=== PATIENT | male | born 1955 | race American Indian/Alaskan Native ===

== ENCOUNTER 2017-03-14 15:17 | Inpatient (IN) | payer OTHER ==
[~2017-03-14] VITALS: Ht 177.8 cm; Wt 113.6 kg
[~2017-03-14 15:17] MED LIST: ADVAIR 500-501 EACH INH; ALEVE220 M1 PO; BACTRIM 400-801 EACH PO; CARAFATE1 GM/10 ML PO; CEFTRIAXONE1 G2 IM; DOXYCYCLINE HY100 M3 PO; NEXIUM20 MG PO; NICOTINE PATCH1 EAC1 TD; PROTONIX40 MG PO; PROVENTIL HFA6.7 GM INH; ZOFRAN ODT4 MG PO
--- NOTE | 2017-03-14 21:35 | NUR ---
61YR OLD MAN ADMITTED FROM ER VIA STRETCHER TO ROOM 122 ACCOMPANIED BY GIRLFRIEND. PT IS ALERT AND ORIENTED. ABLE TO STAND AND WALK FROM STRETCHER TO BED WITH MIN ASSIST. DENIES NAUSEA, RATES RLQ PAIN 4/10. LAUGHING AND JOKING WITH STAFF. REQUESTING NICOTINE PATCH AND SOMETHING TO EAT. ORIENTED TO ROOM AND CALL LIGHT. ORDERS NOTED.
--- NOTE | 2017-03-14 22:17 | NUR ---
GIVEN JELLO AND APPLE JUICE PER CL LIQUID DIET. REQUESTED TO GET UP AND TAKE SHOWER. IV TO SL. IN SHOWER AT THIS TIME. GIRLFRIEND WILL BE STAYING THE NIGHT.
--- NOTE | 2017-03-14 22:38 | NUR ---
PT CALLED, DONE IN SHOWER. IN TO SEE PT. NICODERM PATCH APPLIED TO L SHOULDER. PT REQUEST WATER AND APPLE JUICE, REQUEST GIVEN. NO FURTHER NEEDS AT THIS TIME. AT BEDSIDE. CALL LIGHT IN PLACE.
--- NOTE | 2017-03-14 23:11 | NUR ---
PATIENT ASKED FOR 3 JELLO AND BROTH. CLEANED UP THE SHOWER.
--- NOTE | 2017-03-14 23:43 | NUR ---
PT CALLED REQUESTING MEDICATION FOR PAIN. PT RATES PAIN A 7/10 AFTER COUGHING. DILAUDID 0.4 MG GIVEN. IVF INFUSING. NO FURTHER NEEDS AT THIS TIME. AT BEDSIDE. CALL LIGHT IN PLACE.
--- NOTE | 2017-03-15 01:30 | NUR ---
IN TO CHECK ON PT, PT APPEARS TO BE SLEEPING. PT IN SUPINE POSITION. RR EVEN AND UNLABORED. PT SO SLEEPING AT BEDSIDE. CALL LIGHT IN REACH.
--- NOTE | 2017-03-15 02:46 | NUR ---
NURSE NOTIFIED RE ARACELIP.
--- NOTE | 2017-03-15 03:56 | NUR ---
TEMPERATURE RECHECK BY RESEARCH ATTORNEY. TEMP 99.0. WILL CONTINUE TO MONITOR PT. PT UP TO USE BATHROOM INDEPENDENTLY. PT BACK TO BED. NO FURTHER NEEDS AT THIS TIME. CALL LIGHT IN REACH.
--- NOTE | 2017-03-15 05:50 | NUR ---
DR. MAHER IN TO SEE PT, RN IN ROOM. PT SLEEPING, AWAKES TO NOISE. PT RATES PAIN AN 8/. IV DILAUDID GIVEN. PER DR. MAHER PLAN TO GO TO OR LATER TODAY. NEW ORDERS WRITTEN. PT NOW NPO. NO FURTHER NEEDS AT THIS TIME. CALL LIGHT IN REACH.
--- NOTE | 2017-03-15 07:15 | NUR ---
BEDSIDE REPORT FROM JAI PHILIPPE, PT ALERT AND ORIENTED THIS AM, HE REPORTS PAIN IS WELL CONTROLLED AT THIS TIME. HE SAID HE IS HUNGRY, PT IS NPO FOR SURGERY TODAY.
--- NOTE | 2017-03-15 08:41 | NUR ---
Patient in bed resting. call button in reach. no other needs at this time.
--- NOTE | 2017-03-15 10:28 | NUR ---
PATIENT WOULD LIKE TO SHOWER AT 1400. ORAL CARE DONE. CALL LIGHT IN REACH. PATIENT LAYING IN BED WATCHING TV. VISITOR IN ROOM. NO OTHER NEEDS AT THIS TIME.
--- NOTE | 2017-03-15 11:19 | NUR ---
HELPED PT TO BR, HE NEEDED TIME. TOLD HIM TO CALL WHEN DONE
--- NOTE | 2017-03-15 13:18 | NUR ---
PT REPORTS PAIN IS STARTING TO INCREASE TO 5/10, 0.5MG I.V. DILAUDID ADMINSITERED. PT REPORTS NO OTHER NEEDS AT THIS TIME. FOCUSED ASSESSMENT DONE
--- NOTE | 2017-03-15 14:14 | NUR ---
PATIENT UP TO SHOWER WITH HIBA CLEANSE. LINENES CHANGED.
--- NOTE | 2017-03-15 14:18 | NUR ---
PT BACK TO ROOM 123 AFTER HIDA SCAN. REPORTS PAIN 12/07, TORDOL 30MG I.V. ADMINISTERED WITH TWO TABS NORCO PO PRN AT THIS TIME. PT ALERT AND COOPERATIVE
--- NOTE | 2017-03-15 14:24 | NUR ---
PT UP TO SHOWER WITH HIBICLENS AT THIS TIME. PT REPORTS PAIN WELL MANAGED AT THIS TIME
--- NOTE | 2017-03-15 15:30 | NUR ---
PT OFF THE UNIT WITH JOSHUA PHILIPPE TO SURGERY UNIT.
--- NOTE | 2017-03-15 15:44 | NUR ---
PATIENT OFF FLOOR TO OR.
--- NOTE | 2017-03-15 17:40 | NUR ---
PT HAD UNEVENTFUL AM, LEFT UNIT TO SURGERY AT 1530.
--- NOTE | 2017-03-15 18:10 | NUR ---
03/15/17 181 Suzette Marinelli REPORT FROM ORDNANCE ENGINEERING TECHNICIAN.
--- NOTE | 2017-03-15 19:15 | NUR ---
RECEIVED REPORT FROM DAY SHIFT RN. PATIENT IS RESTING IN BED WATCHING TV. PATEINT DENIES ANY PAIN OR NAUSEA AT THIS TIME. PATIENT GIVEN BROTH PER REQUEST. PATIENT DENIES ANY FURTHER NEEDS AT THIS TIME. CALL ARLEY HADDAD.
--- NOTE | 2017-03-15 20:31 | EKG ---
[facility] [address] [facility] [place] [address] Signed Normal sinus rhythm ST \T\ T wave abnormality, consider inferior ischemia Abnormal ECG When compared with ECG of 22-MAY-2016 09:51, premature supraventricular complexes are no longer present T wave inversion no longer evident in Anterolateral leads Confirmed by ZELDA GARNER MD ([id number]) on 03/15/2017 8:31:10 PM Electronically Signed By: ZELDA GARNER MD 03/15/17 2031 PATIENT NAME: RENA COLEMAN ANTHONY Electrocardiogram DATE OF : 59 PHYSICIAN: ZELDA GARNER MD REPORT #: [id number] REPORT IS CONFIDENTIAL AND NOT TO BE RELEASED WITHOUT AUTHORIZATION
--- NOTE | 2017-03-15 20:38 | NUR ---
PATIENT ASSESMENT COMPLETED. PATIENTS EVENING MEDICATIONS GIVEN PER ORDER. PATIENT DENIES ANY PAIN OR NAUSEA AT THIS TIME. PATIENT GIVEN X2 JELLO PER REQUEST. PATIENT IS REQUESTING TO HAVE THE BENNETT TAKEN OUT. NO ORDER AT THIS TIME. TO REMOVE BENNETT WILL LOOK AT ORDERS. PATIENT DENIES ANY FURTHER NEEDS AT THIS TIME. CALL LIGHTIN REACH AND SO IN THE ROOM.
--- NOTE | 2017-03-15 21:25 | NUR ---
EXECUTIVE DIRECTOR PLACED CALL TO DR MAHER ABOUT BENNETT. RECEIVED VERBAL ORDER TO REMOVE BENNETT. PATIENTS BENNETT REMOVED AT 2119. PATIENT TOLERATED ACTIVITY WELL.
--- NOTE | 2017-03-15 22:15 | NUR ---
PATIENT RATES PAIN AT A 5/10. PATIENT GIVEN PRN PAIN MEDICATION. PATIENT DENIES ANY NAUSEA AT THIS TIME. PATIENT GIVEN BROTH PER REQUEST. PATIENT ELIDA ANY FURTHER NEEDS AT THIS TIME. CALL ARLEY HADDAD.
--- NOTE | 2017-03-15 23:37 | NUR ---
PATIENT CALLED AND REQUESTED PAIN MEDICATION FOR 4/10 PAIN IN ABD. PATIENT GIVEN SECOND TAB OF PAIN MEDICATION TO TITRATE TO THE MAX DOSE OF PO PAIN MEDICATION. PATIENT CONTINUES TO DENY AN NAUSEA. NO FURTHER REQUESTS AT THIS TIME.
--- NOTE | 2017-03-16 01:01 | NUR ---
PATIENT WAS ABLE TO VOID 300ML AFTER BENNETT REMOVAL. PATIENT DENIES ANY PAIN OR NAUSEA AT THIS TIME. CALL ARLEY REACH
--- NOTE | 2017-03-16 02:00 | NUR ---
PATIENT GIVEN PRN PAIN MEDICATION FOR 5/10 PAIN IN HIS ABD. PATIENT DENIES ANY NAUSEA. NO FURTHER NEEDS AT THIS TIME. CALL ARLEY HADDAD.
--- NOTE | 2017-03-16 04:08 | NUR ---
PATIENT GIVEN PRN PAIN MEDICATION FOR 5/10 ABD PAIN. PATIENT DENIES ANY NAUSEA AT THIS TIME. PATIENT ASSISTED TO THE RESTROOM. PATIENT IS A SBA. PATIENT IS PASSING GAS. PATIENT IS NOW BACK IN BED RESTING W/SCDS. PATIENT GIVEN X2 JELLO PER REQUEST. NO FURTHER NEEDS AT THIS TIME. CALL LIGHTIN REACH.
--- NOTE | 2017-03-16 05:15 | NUR ---
PATIENT GIVEN PRN PAIN MEDICATION FOR 5/10 AND PAIN. PATIENT REQUESTED BROTH. PATIENTS REQUESTS MET. PATIENT DENIES ANY FURTHER NEEDS. CALL LIGHT IN REACH.
--- NOTE | 2017-03-16 05:35 | NUR ---
PATIENT RESTED ON AND OFF THROUGHOUT THE SHIFT. PATIENT RECEIVED PRN PAIN MEDICATION EVERY TIME IT WAS AVAILABLE. PATIENT IS ON CLEARS AND TOLERATING WELL, NO NAUSEA NOTED. PATIENT IS A SBA AND IS STEADY ON HIS FEET. PATIENT IS AAOX3. PATIENTS BENNETT DC'D, URINE OUTPUT IS QS. PATIENT LAP SITES ARE C/D/I. PATIENTS BOWEL TONES ARE ACTIVE. PATIENT IS PASSING GAS.
--- NOTE | 2017-03-16 05:40 | CONS ---
[facility] [address] [place], [place] [address] Signed DATE OF CONSULTATION: 03/15/17 REFERRING PHYSICIAN: Dr. Cristobal Mejias. CHIEF COMPLAINT: Right lower quadrant abdominal pain. HISTORY OF PRESENT ILLNESS Kyle is a 61-year-old gentleman who initially started with back pain and it localized in the midway between the umbilicus and the pubic bone and now it is more right lower quadrant. He said it developed over a couple of days. He came to emergency room for evaluation. In the emergency room, his white count is elevated. CT scan showed the tip of his appendix near the aortic bifurcation traveling back to the cecum. Of course, he has the inflammation associated with appendicitis. Consequently, I was asked to admit him as a general surgeon on-call. He was given antibiotics and pain control and said he is feeling quite a bit better. PAST MEDICAL HISTORY Diverticulosis, degenerative disk disease at L5-S1, hypertension, osteoarthritis, COPD, GI bleed/peptic ulcer disease, and MRSA. PAST SURGICAL HISTORY Right thumb surgery, colonoscopy and upper endoscopy. SOCIAL HISTORY He used to smoke up to a pack of cigarettes a day, but now mostly he smokes a pipe and also marijuana. He drinks about a six-pack of beer every couple of weeks. He is with his friend, Lisa Walden, who is his significant other. He has 3 sons and 2 daughters. His son is Festus, at [phone]. Dr. Arnold You, his primary care provider with the [facility]. He also prefers the [facility]. He is currently unemployed. FAMILY HISTORY: Mom had Alzheimer's, dad had diabetes. REVIEW OF SYSTEMS He had 10-systems reviewed and nothing new was added. He said he should be taking some medications, but he never goes over to the pharmacy to get the refills. ALLERGIES: None. MEDICATIONS: None currently. PHYSICAL EXAMINATION SAMRA L SIGNS: Blood pressure is 149/87, heart rate is 95, respiratory rate 16, his temperature is 100.1, he is 97% on room air. He is 5 feet 10 inches, 113 kg. GENERAL EXAM: Kyle is a 61-year-old gentleman lying supine in his hospital bed, Electronically Signed By: KG MAHER MD 03/16/17 0540 PATIENT NAME: KYLE YOU CONSULTATION DATE OF : 59 PHYSICIAN: KG MAHER MD REPORT #: [id number] REPORT IS CONFIDENTIAL AND NOT TO BE RELEASED WITHOUT AUTHORIZATION [address] [address] Signed sleeping. He is easily awakened. His friend, Lisa is in the room as well. He does not appear systemically ill or toxic. LUNGS: Have moderate distant breath sounds. HEART: Regular rate and rhythm. ABDOMEN: Obese, but soft and tender in the right lower quadrant. LABORATORY DATA His white blood cell count is 17.8, hemoglobin 16, neutrophils 82. BUN is 11, creatinine 0.9. UA negative. Liver function tests negative. Albumin is 4.3. RADIOGRAPHIC STUDIES The CT scan of the abdomen and pelvis was performed and he has an inflamed, thickened 12 mm appendix with the tip near the aortic bifurcation traveling back to the cecum. ASSESSMENT AND PLAN Kyle is a 61-year-old gentleman who presents with acute appendicitis. He has been admitted, given IV fluids, antibiotics and pain control. I have reviewed with him the location and function of the appendix. We have discussed laparoscopic versus open appendectomy. He understands expected intraop and postop course along with the risks and benefits. We are going to check the OR schedule today and see when we can fit him in. He has expressed understanding and agrees above plan. MD AAKASH Mccall/Niki /[id number] cc: Arnold You MD Electronically Signed By: KG MAHER MD 03/16/17 0540 PATIENT NAME: KYLE YOU CONSULTATION DATE OF : 59 PHYSICIAN: KG MAHER MD REPORT #: [id number] REPORT IS CONFIDENTIAL AND NOT TO BE RELEASED WITHOUT AUTHORIZATION
--- NOTE | 2017-03-16 06:05 | NUR ---
TURNED PATIENTS IV FLUIDS DOWN PER NEW ORDER. PATIENT DENIES ANY PAIN OR NAUSEA AT THIS TIME. CALL LIGHT IN REACH.
--- NOTE | 2017-03-16 06:10 | NUR ---
DR MAHER HERE TO ASSESS PT, ORDERS WROTE AND PROCESSED.
--- NOTE | 2017-03-16 07:15 | NUR ---
PT RESTING IN BED, REPORTS PAIN WELL MANGED AT THIS TIME. NO DISTRESS NOTED, HE REPORTS PAIN HAS BEEN A LOT LESS SINCE HE PASSED GAS
--- NOTE | 2017-03-16 08:00 | NUR ---
patient resting in bed. girlfriend using shower. no needs at this time. RN in room.
--- NOTE | 2017-03-16 09:00 | NUR ---
patient up to bathroom stand by assist to wash up. clean linens on oral care done. no other needs at this time.
--- NOTE | 2017-03-16 10:40 | NUR ---
patient ambulated in hallway x1 then back to bed. fresh ice water given. no other needs at this time.
--- NOTE | 2017-03-16 13:45 | NUR ---
PATIENT RESTING IN BED WATCHING TV. ENCOURAGED PATIENT TO USE I.S. FOR TEMP. RN NOTIFIED. FRESH ICE WATER GIVEN NO OTHER NEEDS AT THIS TIME. PATIENT STATES THAT HE HAS GONE ON WALK TWO AROUND THE HALLWAY.
--- NOTE | 2017-03-16 15:06 | NUR ---
PT REQUESTS DIET TO BE ADVANCED, HE REPORTS PAIN WELL MANAGED AT THIS TIME.
--- NOTE | 2017-03-16 16:45 | NUR ---
PATIENT IN BED LOOKING AT THE MENU FOR BREAKFAST. NO NEEDS AT THIS TIME.
--- NOTE | 2017-03-16 17:23 | NUR ---
PT HAD BEEN UP INDEPENDENTLY IN ROOM AND AMBULATING IN HALLS, HIS PAIN HAS BEEN WELL MANAGED WITH NORCO TWO TABS Q4 HOURS PRN, NO NAUSEA TOLERATING REGULAR CARDIAC DIET. VOIDING WELL, FLATUS POSITIVE THROUGH OUT SHIFT. SURGERY SITES WNL, SCANT OLD DRAINAGE.
--- NOTE | 2017-03-16 18:14 | NUR ---
PATIENT SITTING UP EATING DINNER. FRESH ICE WATER GIVEN NO OTHER NEEDS AT THIS TIME.
--- NOTE | 2017-03-16 20:03 | NUR ---
PATIENT CALLED WANTING HIS IV SITE WRAPPED. PATIENT IS TAKING SHOWER. BED LINE CHANGED.
--- NOTE | 2017-03-16 20:58 | NUR ---
PT ASSESSMENT COMPLETE. PT ALERT AND ORIENTED. PT RATES PAIN 3/10, 1 TAB NORCO GIVEN. PT DENIES ANY N/V. IV FLUIDS INFUSING WITHOUT DIFFICULTY. ABDOMINAL INCISION SITES x3 ARE C/D/I, OPEN TO AIR, WELL APPROXIMATED, NO REDNESS/SWELLING/DRAINAGE NOTED. HS MEDS GIVEN. CALL LIGHT WITHIN REACH. PT DENIES ANY FURTHER NEEDS AT THIS TIME.
--- NOTE | 2017-03-16 20:59 | NUR ---
NURSE NOTIFIED RE TEMP AND BP.
--- NOTE | 2017-03-16 21:02 | NUR ---
INFORMED OF TEMP 99.2, EDUCATED AND ENCOURAGED PT TO USE INCENTIVE SPIRIMETER TO DECREASE TEMPERATURE. PT VERBALIZED UNDERSTANDING.
--- NOTE | 2017-03-17 00:10 | NUR ---
PT RATES ABDOMINAL PAIN 5/10, 2 TABS NORCO GIVEN. ABDOMINAL INCISIONS C/D/I, OPEN TO AIR, WELL APPROXIMATED, NO REDNESS/SWELLING/DRAINAGE NOTED. IV FLUIDS INFUSING WITHOUT DIFFICULTY. FRESH WATER AND WARM BLANKET GIVEN PER PT REQUEST. EMPTIED URINAL, VOIDING WITHOUT DIFFICULTY. CALL LIGHT WITHIN REACH. PT DENIES ANY FURTHER NEEDS AT THIS TIME.
--- NOTE | 2017-03-17 02:28 | NUR ---
PT UP AMBULATING HALLS INDEPENDENTLY, BACK IN ROOM STATING HE IS HAVING TROUBLE SLEEPING. IV FLUIDS INFUSING WITHOUT DIFFICULTY. SCHEDULED ABX STARTED. PT VOIDING WELL. PT NOW WATCHING TV, BROUGHT CRACKERS AND BROTH PER PT REQUEST. CALL LIGHT WITHIN REACH. PT DENIES ANY FURTHER NEEDS AT THIS TIME.
--- NOTE | 2017-03-17 04:12 | NUR ---
PT C/O PAIN 09/07, 2 TABS NORCO GIVEN. IV FLUIDS INFUSING WITHOUT DIFFICULTY. ABDOMINAL INCISIONS C/D/I, WELL APPROXIMATED, NO REDNESS/SWELLING/DRAINAGE NOTED. PT VOIDING WELL IN URINAL. TOLERATING PO WELL. CALL LIGHT WITHIN REACH. PT DENIES ANY FURTHER NEEDS AT THIS TIME.
--- NOTE | 2017-03-17 05:16 | NUR ---
PT HAD AN UNEVENTFUL NIGHT. PT SLEPT INTERMITTENTLY. PT AMBULATES INDEPENDENTLY IN HALLS AND ROOM. IV FLUIDS INFUSING WITHOUT DIFFICULTY. PT RECEIVING NORCO FOR PAIN. ABDOMINAL LAP SITES x3 OPEN TO AIR, WELL APPROXIMATED, NO REDNESS/SWELLING/DRAINAGE NOTED. PT TOLERATING PO WELL. VOIDING WELL. PT ON ROOM AIR. PT PLAN IS TO D/C HOME TODAY.
--- NOTE | 2017-03-17 07:27 | NUR ---
RECIEVED REPORT FROM POSITION CLERK NURSE. PT RESTING IN BED. DENIES NEEDS. CALL VELÁZQUEZ IN REACH.
--- NOTE | 2017-03-17 07:40 | NUR ---
Patient resting in bed with eyes closed.
--- NOTE | 2017-03-17 08:21 | NUR ---
PATIENT AMBULATING HALLWAY.
--- NOTE | 2017-03-17 08:30 | NUR ---
PT C/O PAIN IN R SIDE ABD THAT HE STATES INCREASED AFTER HIS WALK. PAIN MEDICINE ADMINISTERED PER JUL. BS HEARD. PT HAVING "FORMED" BMS. LUNGS DIM ON L SIDE. MAXI PATCH APPLIED TO R DELTOID. IS ENCOURAGED AND DEMONSTRATED. PT DENIES FURTHER NEEDS. STATES HE IS GOING TO TAKE A NAP. DR. MAHER IN TO SEE PT. CALL VELÁZQUEZ IN REACH.
--- NOTE | 2017-03-17 08:35 | OR ---
[facility] [address], [place] [address] Signed DATE OF PROCEDURE: 03/15/17 PREOPERATIVE DIAGNOSIS: Acute appendicitis. POSTOPERATIVE DIAGNOSIS: Acute suppurative appendicitis. PROCEDURES: Laparoscopic appendectomy. ESTIMATED BLOOD LOSS: Minimal. FINDINGS Kyle's appendix traveled transversely across the abdomen toward the bifurcation of the aorta. It took just a few minutes to bluntly dissect that free and lift that up into the operative field. He clearly had separation with pus in the pelvis which we copiously irrigated and suctioned out until clear. INDICATIONS Kyle is a 61-year-old gentleman who over a couple of days was having pain in his back that began to radiate to the right lower quadrant. He came to emergency room for evaluation. He clearly had peritoneal signs and symptoms in the right lower quadrant. His white count was elevated. CT scan showed his thickened inflamed appendix with periappendiceal inflammation traveling from the cecum across toward the aortic bifurcation. I had been asked to admit him as a general surgeon on-call. He received his antibiotics overnight along with pain control and IV fluids. I met with him this morning and we had a discussion regarding the above findings. We discussed the location and function of the appendix, we discussed laparoscopic versus open appendectomy. He understands the expected intraop and postop course. He also understands there is risk including but not limited to bleeding, infection, scarring, change in contour of the skin, damage to bowel, appendiceal stump leak, postoperative intraabdominal abscess, incisional hernias, and other unforeseen comorbidities. He had expressed understanding, wished to proceed. PROCEDURE NOTE Luiz was taken into our operating room and placed in the supine position under general endotracheal tube anesthesia. He was already on preoperative antibiotics along with subcutaneous heparin. SCDs were in place. A Mullins catheter was inserted with return of clear yellow urine. He was then prepped and draped in the usual sterile fashion. We placed our Driver in the supraumbilical position under direct visualization without difficulty. We could easily see the inflammatory changes to the abdominal wall and around the cecum. We introduced our suprapubic 5 mm trocar and with our grasper, we followed the anterior tinea coli down to the base of the appendix and we rotated the small bowel away from the appendix we were able to bluntly lifted up from the posterior Electronically Signed By: KG MAHER MD 03/17/17 0835 PATIENT NAME: KYLE YOU OPERATIVE REPORT DATE OF : 59 PHYSICIAN: KG MAHER MD REPORT #: [id number] REPORT IS CONFIDENTIAL AND NOT TO BE RELEASED WITHOUT AUTHORIZATION [facility] [address] [place], [place] [address] Signed perineum. After this, we introduced our right subcostal trocar site and that allowed us to bring our cautery in so we could dissect off the base of the appendix from the cecum. We divided the base of the appendix from the cecum with our linear stapler. The staple line was gently cauterized for hemostasis. We then used a vascular load on linear stapler to divide the mesoappendix and again we used gentle cautery along that staple line for hemostasis. The appendix was then placed into an EndoCatch bag. We introduced our suction medical surgery nurse and we copiously irrigated the right lower quadrant down in the pelvis and suctioned out until clear. After this, we removed the appendix and used our laparoscopic suturing device to pass 0 Vicryl suture on either side of the fascia of the right subcostal trocar site. This was tied down to close this fascia primarily. After this, the gas was allowed to escape and the remaining 2 trocars were removed. We used interrupted simple and [id number] 0 Vicryl suture to close the fascia of the supraumbilical trocar site. This was tied down to close this fascia primarily. After this, we injected local anesthetic and all 3 trocar sites. Each trocar site was irrigated and suctioned out until clear. The skin and dermis were then closed with interrupted 3-0 subcuticular Monocryl sutures. Dry gauze and tape were then applied to all incisions. He was then awakened from his anesthesia, extubated in the OR, and taken to recovery room in stable condition. MD AAKASH Mccall/Niki /[id number] cc: Arnold You MD Electronically Signed By: KG MAHER MD 03/17/17 0835 PATIENT NAME: KYLE YOU OPERATIVE REPORT DATE OF : 59 PHYSICIAN: KG MAHER MD REPORT #: [id number] REPORT IS CONFIDENTIAL AND NOT TO BE RELEASED WITHOUT AUTHORIZATION
--- NOTE | 2017-03-17 10:30 | NUR ---
PATIENT SITTING UP IN BED. FRESH ICE WATER GIVEN. WANTS TO SHOWER LATER. NO NEEDS AT THIS TIME.
--- NOTE | 2017-03-17 12:08 | NUR ---
PT C/O PAIN IN ABD. PAIN MEDS ADMINISTERED PER MAR. PT DENIES FURTHER NEEDS. CALL VELÁZQUEZ IN REACH.
--- NOTE | 2017-03-17 13:12 | NUR ---
PATIENT SET UP FOR SHOWER. FRESH ICE WATER GIVEN. NO OTHER NEEDS AT THIS TIME.
--- NOTE | 2017-03-17 13:44 | NUR ---
PT SITTING ON SIDE OF BED EATING LUNCH. HE WAS FRIENDLY, SAID HE HAS LESS PAIN BUT DOES NOT WANT TO COUGH OR SNEEZE. THANKED ME FOR STOPPING, WILL FOLLOW NEEDED
--- NOTE | 2017-03-17 13:50 | NUR ---
PT RESTING AT A DANGLE ON THE SIDE OF THE BED. MEAL TRAY SERVED. PT STATES HE WOULD LIKE TO BE SWITCHED TO A REGULAR DIET, NOT CARDIAC. CALL MELANIA IN REACH.
--- NOTE | 2017-03-17 15:50 | NUR ---
PATIENT SITTING UP IN BED WATCHING TV. ASKED FOR ICECREAM. THIS CREDIT NEGOTIATOR EMPTIED URNIAL. NO OTHER NEEDS AT THIS TIME.
--- NOTE | 2017-03-17 16:10 | NUR ---
PT RESTING IN BED. STATES HE HAS HAD A FEW BMS TODAY THAT ARE MORE FORMED THAN THEY HAVE BEEN. C/O PAIN ON R SIDE ABD AND REQUESTED PAIN MEDICATION. WATER PITCHER FILLED. ENCOURAGED INCENTIVE SPIROMETER. PT DENIES FURTHER NEEDS. CALL VELÁZQUEZ IN REACH.
--- NOTE | 2017-03-17 17:50 | NUR ---
PATIENT SITTING AT EDGE OF BED EATING DINNER AND WATCHING TV. NO NEEDS AT THIS TIME. CALL BUTTON IN REACH.
--- NOTE | 2017-03-17 18:30 | NUR ---
PT'S BP ELEVATED THIS EVENING. PT STATES HE JUST TOOK A COUPLE LAPS AROUND THE TOPETE AND AFTER HIS VS WERE TAKEN. WILL RETAKE VS AFTER HE HAS RESTED FOR A BIT. CALL VELÁZQUEZ IN REACH. PT DENIES NEEDS.
--- NOTE | 2017-03-17 18:37 | NUR ---
UNEVENTFUL DAY. PRN PAIN MEDS GIVEN EVERY 4 HOURS. LAP SITES WNL. SLIGHTLY "BLOATED." STATES PAIN FEELS DIFFERENT TODAY. COIULD HAVE BEEN D/C THIS MORNING. PT CHOSE TO STAY ONE MORE NIGHT. SHOWERED TODAY.
--- NOTE | 2017-03-17 19:05 | NUR ---
SHIFT REPORT RECIEVED. PATIENT RESTING IN BED. EYES CLOSED. CALL LIGHT IN REACH.
--- NOTE | 2017-03-17 20:15 | NUR ---
EVENING MEDS GIVEN PER ORDERS. PATIENT ASSESSMENT COMPLETED. PATIENT REPORTS PAIN 6/10 IN HIS RLQ, PRN PAIN MEDS GIVEN. INCISION CITES ARE OPEN TO AIR, EDGES WELL APPROXIMATED, NO DRAINAGE. SKIN AROUND INCISIONS IS RED FROM TAPE THAT WAS PREVIOUSLY USED. PATIENT STATES THE SKIN IS NOT PAINFUL. ABD IS ROUND, FIRM, PATIENT STATES IT IS NORMAL. BOWEL SOUNDS ACTIVE. LUNGS CLEAR. PATIENT AMBULATES WITH SBA, APPEARS STEADY ON HIS FEET. PATIENT DENIES FURTHER NEEDS AT THIS TIME. CALL LIGHT IN REACH.
--- NOTE | 2017-03-17 20:56 | NUR ---
MD CONTACTED TO DISCUSS PATIENT EXCEEDING MAX DOSE FOR ORAL PAIN MEDICATION. MD REQUEST THAT THE IV PAIN MEDS BE USED INSTEAD. NO NEW ORDERS.
--- NOTE | 2017-03-17 23:11 | NUR ---
NURSE IN ROOM
--- NOTE | 2017-03-17 23:20 | NUR ---
PATIENT REQUESTED NEW ICE WATER. PATIENT STATES HIS PAIN IS UNDERCONTROL AT THIS TIME. CALL LIGHT IN REACH.
--- NOTE | 2017-03-18 00:05 | NUR ---
PATIENT REQUESTED PRN PAIN MEDS. PAIN RATED AT 3/10. PATIENT RESTING IN BED WATCHING TV. CALL LIGHT IN REACH.
--- NOTE | 2017-03-18 02:14 | NUR ---
MEDS GIVEN PER ORDER. PATIENT RESTING IN BED. EYES CLOSED. SNORING. RR 18.
--- NOTE | 2017-03-18 03:40 | NUR ---
PATIENT RESTED WELL THROUGHOUT THE NIGHT. PRN PAIN MEDS GIVEN X2. LAP SITES ARE WELL APPROXIMATED AND OPEN TO AIR. PATIENT INDEPENDENT IN ROOM. TOLERATING REGULAR DIET. IVF INFUSING.
--- NOTE | 2017-03-18 03:48 | NUR ---
PATIENT IN BED ASLEEP
--- NOTE | 2017-03-18 04:50 | NUR ---
PATIENT RECIEVED PRN PAIN MEDS FROM JOSE MARTIN AMAYA.
--- NOTE | 2017-03-18 06:05 | NUR ---
PATIENT REQUEST PRN PAIN MEDS, WHICH WERE GIVEN. PATIENT RESTING IN BED. DENIES ANY FURTHER NEEDS. VS COMPLETED, WNL.
--- NOTE | 2017-03-18 07:23 | NUR ---
RECIEVED REPORT FROM RETAIL CLERK. PT SLEEPING ON L SIDE. CALL VELÁZQUEZ IN REACH.
--- NOTE | 2017-03-18 07:49 | NUR ---
MEAL TRAY DELIVERED. PT STATES HE FEELS "ACHEY" THIS MORNING. DENIES FURTHER NEEDS. CALL VELÁZQUEZ IN REACH.
--- NOTE | 2017-03-18 09:00 | NUR ---
PT RESTING IN BED WATCHING TV. LUNG SOUNDS CLEAR TO DIM IN THE BASES. BS ACTIVE. PT STATES HE HAD A FORMED BM THIS MORNING. VOIDING WELL. LAP SITES APPEAR WNL. SLIGHTLY RED WHERE ADHESIVE WAS FROM LAP SITE DRESSINGS BUT IMPROVING FROM YESTERDAY. PT DENIES NEEDS AT THIS TIME. STATES HE WOULD LIKE HIS PAIN MEDICATION WHEN HE CAN HAVE IT AGAIN. CALL VELÁZQUEZ IN REACH.
--- NOTE | 2017-03-18 10:01 | NUR ---
PT IS SITTING UP IN BED WITH CALL LIGHT IN REACH. PT ASKED FOR MORE COFFEE
--- NOTE | 2017-03-18 10:19 | NUR ---
PT AMBULATED HALLS. NOW HE IS RESTING IN BED WATCHING TV. REQUESTS FOR PAIN MEDICATION, PT IS AWARE THIS IS AN " NEEDED" MEDICATION. PAIN LOCATED IN HIS RLQ. NORCO GIVEN. PT DENIES FURTHER NEEDS. CALL LIGHT IN REACH.
[2017-03-18] MEDS ORDERED: FLAGYL500 MG PO (11:13)
[2017-03-18] MEDS ORDERED: CIPRO500 MG PO (11:13)
[2017-03-18] MEDS ORDERED: NORCO 10-325 T1 EACH PO (11:13)
--- NOTE | 2017-03-18 12:13 | NUR ---
PT SLEEPING. CALL VELÁZQUEZ IN REACH.
--- NOTE | 2017-03-18 13:13 | NUR ---
PT SLEEPING EVIDENCE BY SNORING. CALL VELÁZQUEZ IN REACH. MEAL TRAY AT BEDSIDE.
--- NOTE | 2017-03-18 14:21 | NUR ---
PT AWAKE, REQUESTING FOR PAIN MEDICATION. PT UP TO BATHROOM. SPOKE WITH WHIT ABOUT GETTING A RIDE HOME FOR PATIENT. FAXED PRESCRIPTIONS TO [facility]. CALLING TO CONFIRM THEY RECIEVED PRESCRIPTIONS.
--- NOTE | 2017-03-18 14:54 | NUR ---
PT IS IN THE PROCESS OF BEING DISCHARGED.
--- NOTE | 2017-03-18 14:57 | NUR ---
REVIEWED D/C PAPERWORK WITH PATIENT. STATES HE HAS NO QUESTIONS. PHARMACIST IN TO SPEAK WITH PATIENT REGARDING D/C MEDS. IV REMOVED, WNL. PT DENIES FURTHER NEEDS.
--- NOTE | 2017-03-21 07:10 | DS ---
[facility] [address], [place] [address] Signed DATE OF DISCHARGE: 03/18/17 FINAL DIAGNOSIS: Significant suppurative appendicitis. PROCEDURES: Laparoscopic appendectomy. HISTORY OF PRESENT ILLNESS Kyle is a 61-year-old obese gentleman who has some chronic medical issues including hypertension and COPD, but he has failed to refill his medication prescriptions. He had 2 days of pain radiating through to his back and it localized to the right lower quadrant. He came to the emergency room for evaluation. He had peritonitis in lower abdomen with an elevated white count. CT scan showed a 12 mm appendix with significant surrounding inflammation with the appendix traveling over with the tip near the bifurcation of the aorta. 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 He was given Cefepime and Flagyl initially and then Rocephin and Flagyl along with pain control. I had met with Kyle in the hospital and we decided to take him to the operating room that same day. HOSPITAL COURSE Kyle was taken to the operating room and underwent a laparoscopic appendectomy. He had rather significant suppurative appendicitis. Most of his pelvis was full of liquid pus. We were able to irrigate and suction that out until clear. We did not leave a drain. He had an expected intraop and postop course. He does run a little tachycardic and his blood pressure does run high in the 180s even the 190s. We left him on the Rocephin and Flagyl during the hospital stay. He did very well. He was able to eat and pass gas and had several bowel movements. His heart rate came down nicely and his temperatures came down as well. His abdominal exam is markedly improved. He really has very minimal expected postop tenderness at this point. We were thinking about sending him home yesterday, but [place] and he has an outhouse and he thought that might be a bit much. In addition, he was continuing to have fevers. I've given him an extra day in the hospital of IV antibiotics and he has continued to improve. He was hoping to stay 1 more day because he said his was out of town. Nevertheless, I think he is going to be fine. We are going to let him go home later when some of his friends got off work and he should do fine. DISCHARGE PLANS AND MEDICATIONS Kyle is going to be discharged home with Freedom one to two tablets p.o. q.4-6 hours p.r.n. pain. We will dispense 50 tablets with no refills. We are going to continue his antibiotics with Cipro 500 mg p.o. twice a day for 4 days along with Flagyl 500 mg p.o. three times a day for 4 days. I asked him to check in with his pharmacist at the [facility] to refill his blood pressure pills and so forth. We will have him back in our office in about a week or so for follow-up. He is welcome to perform his Electronically Signed By: KG MAHER MD 03/21/17 0710 PATIENT NAME: KYLE YOU DISCHARGE SUMMARY DATE OF : 59 PHYSICIAN: KG MAHER MD REPORT #: [id number] REPORT IS CONFIDENTIAL AND NOT TO BE RELEASED WITHOUT AUTHORIZATION [address] [address] Signed activities of daily living, including walking up and down stairs and showering, bathing as usual. He should not do any heavy pushing, pulling, or lifting over about 20 pounds. We will have him back in the office again in about a week or so. He has expressed understanding and agrees to above plan. MD AAKASH Mccall/Niki /[id number] cc: Arnold You MD Electronically Signed By: KG MAHER MD 03/21/17 0710 PATIENT NAME: KYLE YOU DISCHARGE SUMMARY DATE OF : 59 PHYSICIAN: KG MAHER MD REPORT #: [id number] REPORT IS CONFIDENTIAL AND NOT TO BE RELEASED WITHOUT AUTHORIZATION
== END 2017-03-18 15:38 | disposition home or self-care (01) | DRG 340 ==
LOC: ED 15:17 → MS 20:33
PROVIDERS: ADMIT Colon & Rectal Surgery
PROC: 0DTJ4ZZ Resection of Appendix, Percutaneous Endoscopic Approach (ICD-10-PCS; principal; 2017-03-15 14:00)
DX: K35.3 Acute appendicitis with localized peritonitis (principal); K57.90 Diverticulosis of intestine, part unspecified, without perforation or abscess without bleeding; I10 Essential (primary) hypertension; M19.90 Unspecified osteoarthritis, unspecified site; J44.9 Chronic obstructive pulmonary disease, unspecified; F17.210 Nicotine dependence, cigarettes, uncomplicated
CPT/HCPCS: 00840; 74177; 80053; 81001; 83690; 85025; 93005; 93010; 94762; 96361; 96365; 96368; 96375; 96376; 99285; J0692; J0696; J1170; J1644; J1885; J2250; J2405; J2704; J3010; J7030; J7120; Q9967

== ENCOUNTER 2018-11-12 23:04 | Emergency (ER) | payer OTHER ==
[~2018-11-12] VITALS: Ht 177.8 cm; Wt 91.0 kg
[~2018-11-12 23:04] MED LIST changes: +ALBUTEROL2.5 MG/0.5 INH; +ALBUTEROL2.5 MG/3 M INH; +CIPRO500 MG PO; +CIPROFLOXACIN500 MG PO; +FLAGYL500 MG PO; +GENERLAC10 GM/15 M PO; +IPRAT-ALBUT 0.5-3 ML INH; +METFORMIN HCL500 MG PO; +NORCO 10-325 T1 EACH PO; +PROCHAMBER1 EACH MISC; +VENTOLIN HFA18 GM INH; +VITAMIN B-1100 MG PO
[2018-11-13] MEDS ORDERED: CEPHALEXIN500 MG PO (01:22)
== END 2018-11-13 01:38 | disposition home or self-care (01) ==
LOC: ED 23:04
DX: N39.0 Urinary tract infection, site not specified (principal); I10 Essential (primary) hypertension; F17.200 Nicotine dependence, unspecified, uncomplicated; J45.909 Unspecified asthma, uncomplicated
CPT/HCPCS: 80053; 81001; 83690; 85025; 87088; 96374; 96375; 99284-25; J0696; J1170; J2405